=== PATIENT | male | born 1995 | race Caucasian/White ===

== ENCOUNTER 2024-02-17 18:32 | Emergency (ER) | payer OTHER ==
[~2024-02-17] VITALS: Ht 162.5 cm; Wt 70.3 kg
[2024-02-17] MEDS ORDERED: Tetracaine Hydrochloride 0.5% 4 ML BOT OPH ONE (19:15)
[2024-02-17] MEDS ORDERED: FLUORESCEIN SODIUM 1 MG STRIP OPH ONE (19:15)
[2024-02-17] MEDS ORDERED: OFLOXACIN 10 ML10 M2 OS (19:26)
[2024-02-17] MEDS ORDERED: OFLOXACIN 0.3% 5 ML BOTTLE OPH ONE (19:30)
== END 2024-02-17 19:42 | disposition home or self-care (01) ==
LOC: ED 18:32
DX: S05.02XA Injury of conjunctiva and corneal abrasion without foreign body, left eye, initial encounter (principal); W22.8XXA Striking against or struck by other objects, initial encounter; Y93.89 Activity, other specified; Y92.89 Other specified places as the place of occurrence of the external cause; Y99.8 Other external cause status